=== PATIENT | male | born 1980 | race Caucasian/White ===

== ENCOUNTER 2017-08-16 18:36 | Emergency (ER) | payer SELFPAY ==
[2017-08-16 20:00] VITALS: BP 148/98
--- NOTE | 2017-08-16 22:05 | ED ---
Throat Pain/Nasal Congestion - History of Current Complaint Chief Complaint: EDDentalPain Time Seen by Provider: 08/16/17 21:59 - Allergies/Home Medications Allergies/Adverse Reactions: Allergies Allergy/AdvReac Type Severity Reaction Status Date / Time No Known Allergies Allergy Verified 08/16/17 18:42 PMH/Surg Hx/FS Hx/Imm Hx Infectious Disease History: No Infectious Disease History: Denies: Traveled Outside the [place] in Last 30 Days Physical Exam Vital Signs On Initial Exam: Initial Vitals Temp Pulse Resp BP Pulse Ox 97.7 F 105 18 156/94 100 08/16/17 18:39 08/16/17 18:39 08/16/17 18:39 08/16/17 18:39 08/16/17 18:39 Diagnostics - Vital Signs Vital Signs Temp Pulse Resp BP Pulse Ox 08/16/17 19:59 98.1 F 70 148/98 100 08/16/17 18:39 97.7 F 105 18 156/94 100 - Laboratory Lab Statement: Any lab studies that have been ordered have been reviewed, and results considered in the medical decision making process. EENT Course/Dx - Course Course Of Treatment: drug check reference #[id number]. Discharge - Discharge Plan Referrals: No Primary Care Phys,NOPCP [Primary Care Provider] -
== END 2017-08-16 21:59 | disposition left against medical advice (07) ==
LOC: ED 18:36
DX: K08.89 Other specified disorders of teeth and supporting structures (principal); Z53.21 Procedure and treatment not carried out due to patient leaving prior to being seen by health care provider

== ENCOUNTER 2019-08-03 10:28 | Inpatient (IN) ==
[2019-08-03] MEDS ORDERED: NS 0.9% 1000 ml BAG 1,000 ML IV ONE ×2 (10:57→16:14)
[2019-08-03 11:39] LABS: ABS Basophils 0.1 10^3/ul (0-0.2); ABS Lymphocytes 0.5 10^3/ul (1.0-4.8); ABS Monocytes 0.4 10^3/ul (0-0.8); Eosinophil % 0.3 %; Hematocrit 45 % (42-52); Hemoglobin 16.2 g/dL (14.0-18.0); Lymphocyte % 4.6 %; Mean Corpuscular HGB Conc 36 g/dL (31-36); Mean Corpuscular Hemoglobin 35 pg (27-31); Mean Corpuscular Volume 99 fL (80-94); Mean Platelet Volume 7.3 fL (7.4-10.4); Platelet Count 122 10^3/uL (150-450); Red Blood Count 4.59 10^6 /uL (4.18-5.48); Red Cell Distribution Width 13 % (10-15); White Blood Count 11.4 10^3/uL (3.5-10.8)
[2019-08-03 11:46] LABS: Urine Appearance Cloudy; Urine Bilirubin Negative (Negative); Urine Blood Negative (Negative); Urine Color Yellow; Urine Glucose Negative (Negative); Urine Ketones Negative (Negative); Urine Nitrite Negative (Negative); Urine Protein Negative (Negative); Urine Specific Gravity 1.012 (1.010-1.030); Urine Urobilinogen Negative (Negative)
[2019-08-03 12:12] LABS: ALT 31 U/L (7-52); Albumin 4.4 g/dL (3.2-5.2); Albumin/Globulin Ratio 1.5 (1-3); Alkaline Phosphatase 87 U/L (34-104); BUN/Creatinine Ratio 5.7 (8-20); Blood Urea Nitrogen 5 mg/dL (6-24); C Reactive Protein 31.15 mg/L (<8.01); CO2 Carbon Dioxide 22 mmol/L (22-32); Calcium 9.6 mg/dL (8.6-10.3); Chloride 94 mmol/L (101-111); EGFR African American 118.2 (>60); EGFR Non-African American 97.7 (>60); Globulin 2.9 g/dL (2-4); Glucose 151 mg/dL (70-100); Sodium 130 mmol/L (135-145); Total Protein 7.3 g/dL (6.4-8.9)
[2019-08-03 12:30] LABS: Anion Gap 14 mmol/L (2-11)
[2019-08-03] MEDS ORDERED: Ondansetron 4 mg VIAL 2 MG/ML 2 ml VIAL IV ONE (13:30)
[2019-08-03] MEDS ORDERED: Morphine 4 MG/ML VIAL (1 ml) IV ONE ×2 (13:30→14:52)
[2019-08-03 14:56] LABS: Triglycerides 1746 mg/dL
[2019-08-03] MEDS ORDERED: Ondansetron 4 mg VIAL 2 MG/ML 2 ml VIAL IV PRN (16:00)
[2019-08-03] MEDS ORDERED: NS 0.9% 1000 ml BAG 1,000 ML IV SCH (16:00)
[2019-08-03] MEDS ORDERED: Lactated Ringers 1000 ml BAG 1,000 ML IV SCH (17:00)
[2019-08-03 18:13] LABS: INR 1.29 (0.82-1.09)
[2019-08-03 18:28] LABS: Albumin 4.1 g/dL (3.2-5.2); Albumin/Globulin Ratio 1.6 (1-3); BUN/Creatinine Ratio 7.5 (8-20); Calcium 8.8 mg/dL (8.6-10.3); EGFR African American 130.2 (>60); EGFR Non-African American 107.6 (>60); Globulin 2.6 g/dL (2-4); HDL Cholesterol 37.1 mg/dL; Indirect Bilirubin 4.1 mg/dL (0.3-1.0); Total Bilirubin 4.5 mg/dL (0.2-1.0); Total Protein 6.7 g/dL (6.4-8.9)
[2019-08-03] MEDS ORDERED: Dextrose 50% Syringe 50 ml 25 GM/50 ML SYRINGE IV PUSH PRN (19:48)
[2019-08-03] MEDS ORDERED: Dextrose 50% Syringe 50 ml 25 GM/50 ML SYRINGE ONE (19:56)
[2019-08-03] MEDS: D5W 1/2 NS 1000 ml BAG 1,000 ML IV SCH (19:59)
[2019-08-04] MEDS ORDERED: Morphine 2 MG/ML SYRINGE IV ONE (04:18)
[2019-08-04] MEDS: D5W 1/2 NS 1000 ml BAG 1,000 ML IV SCH (06:23)
[2019-08-04 06:49] LABS: Albumin 3.8 g/dL (3.2-5.2); Albumin/Globulin Ratio 1.5 (1-3); BUN/Creatinine Ratio 8.6 (8-20); Calcium 8.3 mg/dL (8.6-10.3); EGFR African American 128.4 (>60); EGFR Non-African American 106.1 (>60); Globulin 2.5 g/dL (2-4); Total Bilirubin 3.7 mg/dL (0.2-1.0); Total Protein 6.3 g/dL (6.4-8.9)
[2019-08-04 07:15] LABS: Hematocrit 41 % (42-52); Hemoglobin 14.4 g/dL (14.0-18.0); Mean Corpuscular HGB Conc 36 g/dL (31-36); Mean Corpuscular Hemoglobin 36 pg (27-31); Mean Corpuscular Volume 101 fL (80-94); Red Blood Count 4.04 10^6 /uL (4.18-5.48); Red Cell Distribution Width 13 % (10-15)
[2019-08-04] MEDS: D5LR 1000 ml BAG 1,000 ML IV SCH ×2 (07:23→10:44)
[2019-08-04] MEDS: Morphine 2 MG/ML SYRINGE IV PRN ×6 (07:24→21:16)
[2019-08-04 08:24] LABS: ABS Lymphocytes 0.5 10^3/ul (1.0-4.8); ABS Monocytes 0.5 10^3/ul (0-0.8); Eosinophil % 0.2 %; Lymphocyte % 5.9 %; Mean Platelet Volume 7.6 fL (7.4-10.4); Platelet Count 88 10^3/uL (150-450)
[2019-08-04] MEDS ORDERED: Lactated Ringers 1000 ml BAG 1,000 ML IV SCH ×2 (10:00→19:00)
[2019-08-04] MEDS: Lactated Ringers 1000 ml BAG 1,000 ML IV SCH ×2 (16:09→21:37)
[2019-08-04] MEDS ORDERED: Lactated Ringers 1000 ml BAG 1,000 ML IV ONE (19:00)
[2019-08-05] MEDS: Lactated Ringers 1000 ml BAG 1,000 ML IV SCH ×4 (01:50→15:47)
[2019-08-05 06:40] LABS: ABS Basophils 0.1 10^3/ul (0-0.2); ABS Lymphocytes 0.5 10^3/ul (1.0-4.8); ABS Monocytes 0.4 10^3/ul (0-0.8); Eosinophil % 0.3 %; Hematocrit 35 % (42-52); Hemoglobin 12.5 g/dL (14.0-18.0); Lymphocyte % 8.6 %; Mean Corpuscular HGB Conc 35 g/dL (31-36); Mean Corpuscular Hemoglobin 36 pg (27-31); Mean Corpuscular Volume 101 fL (80-94); Mean Platelet Volume 7.8 fL (7.4-10.4); Nucleated Red Blood Cells % 0.1; Platelet Count 86 10^3/uL (150-450); Red Cell Distribution Width 14 % (10-15); White Blood Count 6.1 10^3/uL (3.5-10.8)
[2019-08-05 06:56] LABS: ALT 14 U/L (7-52); AST 21 U/L (13-39); Albumin 3.3 g/dL (3.2-5.2); Albumin/Globulin Ratio 1.4 (1-3); Alkaline Phosphatase 64 U/L (34-104); Anion Gap 9 mmol/L (2-11); BUN/Creatinine Ratio 16.9 (8-20); Blood Urea Nitrogen 10 mg/dL (6-24); CO2 Carbon Dioxide 26 mmol/L (22-32); Calcium 8.1 mg/dL (8.6-10.3); Chloride 101 mmol/L (101-111); EGFR Non-African American 152.9 (>60); Globulin 2.4 g/dL (2-4); Glucose 120 mg/dL (70-100); Potassium 3.1 mmol/L (3.5-5.0); Sodium 136 mmol/L (135-145); Total Protein 5.7 g/dL (6.4-8.9)
[2019-08-05] MEDS: KCL 10 MEQ/50 ML IVPREMIX 10 MEQ/50 ML BAG IV SCH ×3 (07:44→10:15)
[2019-08-05] MEDS ORDERED: Potassium Chlor 20 meq TAB.ER PO ONE (08:33)
[2019-08-05 09:30] LABS: Folate > 20.00 ng/mL (>3.99)
[2019-08-06] MEDS: Lactated Ringers 1000 ml BAG 1,000 ML IV SCH ×2 (00:06→03:51)
[2019-08-06 06:28] LABS: Hematocrit 32 % (42-52); Hemoglobin 11.1 g/dL (14.0-18.0); Mean Corpuscular HGB Conc 34 g/dL (31-36); Mean Corpuscular Hemoglobin 35 pg (27-31); Mean Corpuscular Volume 101 fL (80-94); Mean Platelet Volume 7.2 fL (7.4-10.4); Platelet Count 93 10^3/uL (150-450); Red Blood Count 3.21 10^6 /uL (4.18-5.48); Red Cell Distribution Width 13 % (10-15); White Blood Count 5.7 10^3/uL (3.5-10.8)
[2019-08-06 06:40] LABS: Albumin/Globulin Ratio 1.2 (1-3); EGFR African American 192.6 (>60); EGFR Non-African American 159.1 (>60); Globulin 2.5 g/dL (2-4); Total Bilirubin 1.3 mg/dL (0.2-1.0); Total Protein 5.5 g/dL (6.4-8.9)
[2019-08-06] MEDS ORDERED: Potassium Chlor 20 meq TAB.ER PO ONE ×2 (07:34→12:02)
[2019-08-06 09:00] LABS: ABS Lymphocytes 0.6 10^3/ul (1.0-4.8); ABS Monocytes 0.5 10^3/ul (0-0.8); Eosinophil % 0.7 %
[2019-08-06 12:06] VITALS: BP 127/85
== END 2019-08-06 13:20 | disposition home or self-care (01) | DRG 282 ==
LOC: ED 10:28 → MEDTELE 16:00
PROVIDERS: ADMIT Hospitalist; ATTEND Internal Medicine